=== PATIENT | female | born 2000 | race American Indian/Alaskan Native ===

== ENCOUNTER 2019-04-08 09:19 | Emergency (ER) | payer OTHER ==
[2019-04-08] MEDS ORDERED: PEPCID IV ONE (09:41)
[2019-04-08] MEDS ORDERED: NACL 0.9% 1000 ML 2,000 ML IV ONE (09:41)
[2019-04-08] MEDS ORDERED: ATIVAN IV STA (09:41)
--- NOTE | 2019-04-08 09:45 | Emergency Department Report ---
ED Chest Pain HPI - General Chief Complaint: Chest Pain Stated Complaint: CHEST PRESSURE/DISCOMFORT Time Seen by Provider: 04/08/19 09:33 Source: patient, RN notes reviewed Mode of arrival: Ambulatory Limitations: No Limitations - History of Present Illness Initial Comments: This is a 18-year-old female. The patient is not known to this provider previo usly. She does not have a primary care doctor. She states she is not . She has not taken aspirin recently. She denies DVT, pulmonary embolus risk factors. She indicates that she is not . She states no family history of heart disease or pulmonary embolism. Patient presents to the ER today with a complaint of intermittent chest wall pressure, present for days, does not radiates to the back, arms and neck, no vomiting, no diaphoresis, feels anxious, with shortness of breath. Symptoms decreased when she goes to sleep, and are typically not present when she wakes up. However, during the day, they typically come back. Patient reports that she went online, and looked up "stuff undergo", and she now feels quite anxious. In the emergency room, initially found to be tachycardic, given Ativan, fluids, which dramatically improved her symptoms. She denies other complaints. MD Complaint: other -: days(s) Onset: other Pain Location: left chest Pain Radiation: none Quality: pressure Consistency: intermittent Improves With: other Worsens With: other Context: other re: dyspnea Aspirin use within the Past 7 Days: (0) No - Related Data On Oral Contraceptives: No Previous Rx's Medication Instructions Recorded Last Taken Type Ibuprofen [Motrin] 800 mg PO TID PRN #14 tablet 09/19/13 Unknown Rx Allergies Allergy/AdvReac Type Severity Reaction Status Date / Time No Known Allergies Allergy Verified 04/08/19 09:20 Heart Score - HEART Score History: Slightly suspicious EKG: Normal Age: < 45 Risk factors: No known risk factors Troponin: < normal limit HEART Score: 0 - Critical Actions Critical Actions: 0-3 pts:0.9-1.7%risk of adverse cardiac event.Candidate for discharge ED Review of Systems ROS: Stated complaint: CHEST PRESSURE/DISCOMFORT Other details as noted in HPI Constitutional: denies: diaphoresis, fever Eyes: denies: eye discharge Respiratory: denies: cough Cardiovascular: chest pain, palpitations Gastrointestinal: denies: vomiting Genitourinary: denies: dysuria Musculoskeletal: denies: back pain Skin: denies: lesions Neurological: denies: weakness Psychiatric: anxiety ED Past Medical Hx - Past Medical History Previous Medical History?: No - Surgical History Past Surgical History?: No - Social History Smoking Status: Never Smoker Substance Use Type: None - Medications Home Medications: Home Medications Medication Instructions Recorded Confirmed Last Taken Type Ibuprofen [Motrin] 800 mg PO TID PRN #14 tablet 09/19/13 Unknown Rx ED Physical Exam - General Limitations: No Limitations General appearance: alert, in no apparent distress - Head Head exam: Present: atraumatic, normocephalic - Eye Eye exam: Present: normal appearance, EOMI. Absent: nystagmus - ENT ENT exam: Present: normal exam, normal orophraynx, mucous membranes moist, normal external ear exam - Neck Neck exam: Present: normal inspection, full ROM. Absent: tenderness, menin gismus - Respiratory Respiratory exam: Present: normal lung sounds bilaterally, other (there is no breast redness, pus, streaking or tenderness. Chaperoned by nurse Jeannie Velasquez). Absent: respiratory distress, wheezes, rales, rhonchi, stridor, chest wall tenderness - Cardiovascular Cardiovascular Exam: Present: normal rhythm, tachycardia, normal heart sounds. Absent: systolic murmur, diastolic murmur, rubs, gallop - GI/Abdominal GI/Abdominal exam: Present: soft. Absent: distended, tenderness, guarding, rebound, rigid, pulsatile mass - Extremities Exam Extremities exam: Present: normal inspection, full ROM, other (2+ pulses noted in the bilateral upper, lower extremities. Compartments soft. No long bony tenderness. The pelvis is stable.). Absent: pedal edema, joint swelling, calf tenderness - Back Exam Back exam: Present: normal inspection, full ROM. Absent: tenderness, CVA tender ness (R), CVA tenderness (L), paraspinal tenderness, vertebral tenderness - Neurological Exam Neurological exam: Present: alert, oriented X3, normal gait, other (Extraocular movements intact. Tongue midline. No facial droop. Facial sensation intact to light touch in the V1, V2, V3 distribution bilaterally. 5 and 5 strength in 4 extremities.. Sensation is intact to light touch in 4 extremities.). Absent: motor sensory deficit - Psychiatric Psychiatric exam: Present: anxious - Skin Skin exam: Present: warm, dry, intact, normal color. Absent: rash ED Course Vital Signs 04/08/19 04/08/19 04/08/19 09:36 09:46 10:00 Temperature Pulse Rate 132 H 115 H 110 H Respiratory 15 18 Rate Blood Pressure 143/79 O2 Sat by Pulse 100 100 Oximetry 04/08/19 04/08/19 04/08/19 10:15 10:30 10:45 Temperature Pulse Rate 92 H 94 H 90 Respiratory 21 17 18 Rate Blood Pressure 143/79 147/83 147/83 O2 Sat by Pulse 100 100 100 Oximetry 04/08/19 04/08/19 04/08/19 11:00 11:14 11:16 Temperature 97.9 F Pulse Rate 118 H Respiratory 18 20 Rate Blood Pressure 147/75 O2 Sat by Pulse 100 100 Oximetry 04/08/19 11:17 Temperature 97.8 F Pulse Rate Respiratory Rate Blood Pressure O2 Sat by Pulse Oximetry NABEEL score - Nabeel Score Age > 65: (0) No Aspirin use within the Past 7 Days: (0) No 3 or more CAD Risk Factors: (0) No 2 or more Angina events in past 24 hrs: (0) No Known CAD with more than 50% Stenosis: (0) No Elevated Cardiac Markers: (0) No ST Deviation Greater than 0.5mm: (0) No NABEEL Score: 0 ED Medical Decision Making - Lab Data Result diagrams: 04/08/19 09:46 04/08/19 09:46 Vital Signs 04/08/19 04/08/19 04/08/19 09:36 09:46 10:00 Temperature Pulse Rate 132 H 115 H 110 H Respiratory 15 18 Rate Blood Pressure 143/79 O2 Sat by Pulse 100 100 Oximetry 04/08/19 04/08/19 04/08/19 10:15 10:30 10:45 Temperature Pulse Rate 92 H 94 H 90 Respiratory 21 17 18 Rate Blood Pressure 143/79 147/83 147/83 O2 Sat by Pulse 100 100 100 Oximetry 04/08/19 04/08/19 04/08/19 11:00 11:14 11:16 Temperature 97.9 F Pulse Rate 118 H Respiratory 18 20 Rate Blood Pressure 147/75 O2 Sat by Pulse 100 100 Oximetry 07/06/19 07/06/19 07/06/19 11:17 11:21 11:30 Temperature 97.8 F Pulse Rate 113 H 102 H Respiratory 18 17 Rate Blood Pressure 147/75 141/81 O2 Sat by Pulse 100 100 Oximetry Lab Results 04/08/19 04/08/19 04/08/19 Range/Units 09:46 09:46 09:46 WBC 8.8 (4.5-11.0) K/mm3 RBC 4.57 (3.65-5.03) M/mm3 Hgb 8.9 L (10.1-14.3) gm/dl Hct 28.8 L (30.3-42.9) % MCV 63 L (79-97) fl MCH 20 L (28-32) pg MCHC 31 (30-34) % RDW 21.2 H (13.2-15.2) % Plt Count 163 (140-440) K/mm3 PT (12.2-14.9) Sec. INR (0.87-1.13) D-Dimer (0-234) ng/mlDDU Sodium 140 (137-145) mmol/L Potassium 3.3 L (3.6-5.0) mmol/L Chloride 103.1 (98-107) mmol/L Carbon Dioxide 23 (22-30) mmol/L Anion Gap 17 mmol/L BUN 8 (7-17) mg/dL Creatinine 0.7 (0.7-1.2) mg/dL Estimated GFR > 60 ml/min BUN/Creatinine Ratio 11 % Glucose 130 H (65-100) mg/dL Calcium 9.3 (8.4-10.2) mg/dL Magnesium 1.70 (1.7-2.3) mg/dL Total Creatine Kinase 96 (30-135) units/L Troponin T < 0.010 (0.00-0.029) ng/mL TSH (0.270-4.200) mlU/mL Free T4 1.10 (0.76-1.46) ng/dL HCG, Quant (0-4) mIU/mL 04/08/19 04/08/19 04/08/19 Range/Units 09:46 09:46 09:46 WBC (4.5-11.0) K/mm3 RBC (3.65-5.03) M/mm3 Hgb (10.1-14.3) gm/dl Hct (30.3-42.9) % MCV (79-97) fl MCH (28-32) pg MCHC (30-34) % RDW (13.2-15.2) % Plt Count (140-440) K/mm3 PT 14.2 (12.2-14.9) Sec. INR 1.13 (0.87-1.13) D-Dimer 136.67 (0-234) ng/mlDDU Sodium (137-145) mmol/L Potassium (3.6-5.0) mmol/L Chloride (98-107) mmol/L Carbon Dioxide (22-30) mmol/L Anion Gap mmol/L BUN (7-17) mg/dL Creatinine (0.7-1.2) mg/dL Estimated GFR ml/min BUN/Creatinine Ratio % Glucose (65-100) mg/dL Calcium (8.4-10.2) mg/dL Magnesium (1.7-2.3) mg/dL Total Creatine Kinase (30-135) units/L Troponin T (0.00-0.029) ng/mL TSH 2.120 (0.270-4.200) mlU/mL Free T4 (0.76-1.46) ng/dL HCG, Quant < 2 (0-4) mIU/mL - EKG Data -: EKG Interpreted by Me EKG shows normal: sinus rhythm Rate: tachycardia - EKG Data When compared to previous EKG there are: previous EKG unavailable - Radiology Data Radiology results: image reviewed interpreted by me: X-ray of the chest appears to be negative for acute disease - Medical Decision Making Differential diagnosis, including not limited to: Anxiety, pneumonia, mitral valve prolapse, thyroid dysfunction, electrolyte derangement, pulmonary embolism, myocarditis, pericarditis GERD, gastritis, hiatal hernia Assessment and plan: 18-year-old female, no pulmonary embolism or DVT risk factors, no risk by well's criteria, negative d-dimer, not hypoxic, unremarkable physical exam with the exception of anxiety and intermittent tachycardia, low risk by Heart score, with likely anxiety. Objective laboratory studies unremarkable, with the exception of minimal hypokalemia, and minimal presumably asymptomatic microcytic anemia. Tachycardia resolved now, heart rate 99 bpm, patient resting currently. She feels improved at this time, and we explained to both the patient and her mother that the patient is at low risk for major adverse cardiac event. She can follow up with an outpatient primary care doctor for her incidental asymptomatic microcytic anemia, and she can follow up with an outpatient driver sales for further evaluation of intermittent tachycardia, which is likely anxiety. Return precautions are reviewed. Discussed self calming techniques with patient. Critical care attestation.: If time is entered above; I have spent that time in minutes in the direct care of this critically ill patient, excluding procedure time. ED Disposition Clinical Impression: Tachycardia, Chest pressure Disposition: DC-01 TO HOME OR SELFCARE Is pt being admited?: No Does the pt Need Aspirin: No Condition: Stable Additional Instructions: Increased consumption of water to 4-6 glasses of water per day. Avoid consumption of stimulants, including coffee, caffeine, caffeinated soda, energy drinks, and tea. Increased consumption of meat, green leaf vegetables, and follow up with her primary care doctor within the next 4 weeks. Follow up with a care manager within the next 4-6 weeks. Patient may follow-up with a care manager in lieu of a primary care doctor. Follow up with a driver sales within the next week. Return to the emergency room right away with new, worse or different symptoms no t present on initial emergency room evaluation. Referrals: EFREN BARCENAS MD [Primary Care Provider] - 3-5 Days [facility] [Provider Group] - 3-5 Days [facility] [Provider Group] - 3-5 Days [facility] [Provider Group] - 3-5 Days [facility] [Provider Group] - 3-5 Days
[2019-04-08 10:28] LABS: BUN/Creatinine Ratio 11; Blood Urea Nitrogen 8 mg/dL (7-17); Calcium 9.3 mg/dL (8.4-10.2); Hemolysis Index 0
[2019-04-08 10:34] LABS: Hematocrit 28.8 % (30.3-42.9); Hemoglobin 8.9 gm/dl (10.1-14.3); Mean Corpuscular HGB Conc 31 % (30-34); Platelet Count 163 K/mm3 (140-440); Red Blood Count 4.57 M/mm3 (3.65-5.03)
[2019-04-08] MEDS ORDERED: K-DUR PO ONE (10:36)
[2019-04-08 10:41] LABS: Mean Corpuscular Volume 63 fl (79-97); Red Cell Distribution Width 21.2 % (13.2-15.2)
[2019-04-08 10:48] LABS: INR 1.13 (0.87-1.13)
[2019-04-08 11:32] VITALS: BP 141/81
--- NOTE | 2019-04-08 11:44 | XRay Report ---
CHEST 2 VIEWS INDICATION: cp. Acute generalized chest pain since Wednesday. COMPARISON: None FINDINGS: Support devices: None. Heart: Within normal limits. Lungs/pleura: Minimal streaky right basilar airspace disease with otherwise clear lungs. No pneumoth orax. Additional findings: None. IMPRESSION: 1. Minimal streaky right basilar airspace disease. Signer Name: Galindo Moctezuma MD Signed: 04/08/2019 11:39 AM Workstation Name: [id number]
== END 2019-04-08 11:54 | disposition home or self-care (01) ==
LOC: ED 09:19
DX: R07.89 Other chest pain (principal); R00.0 Tachycardia, unspecified
CPT/HCPCS: 36415; 71046; 80048; 82550; 83735; 84439; 84443; 84484; 84702; 85027; 85379; 85610; 93005; 93010; 96374; 96375; 99284; J2060; J7030